=== PATIENT | female | born 1960 | race Caucasian/White ===

== ENCOUNTER → 2017-01-11 | Outpatient (CLI) | payer OTHER ==
--- NOTE | 2017-01-11 14:11 | Diagnostic Imaging Report ---
INDICATION: Right upper quadrant pain. TECHNIQUE: Multiple grayscale sonographic images were obtained of the right upper quadrant of the abdomen. CORRELATION STUDY: None FINDINGS: LIVER: The liver measures 14 cm. There is uniform echotexture. GALLBLADDER: The gallbladder is present and demonstrates no evidence of shadowing gallstones or biliary sludge. No abnormal gallbladder wall thickening or pericholecystic fluid. COMMON BILE DUCT: Obscured and not visualized. PANCREAS: Obscured. RIGHT KIDNEY: Measures 9.6 cm. No hydronephrosis. OTHER: None. IMPRESSION: 1. Limited right upper quadrant ultrasound evaluation. No findings to suggest gallstones. Biliary tree cannot be identified but does not appear to be abnormally dilated. Dictated by: Dictated on workstation # [id number]
== END ==
LOC: RAD 13:34
PROVIDERS: ATTEND Nurse Practitioner Family
DX: R10.11 Right upper quadrant pain (principal)
CPT/HCPCS: 76705

== ENCOUNTER → 2017-01-21 | Outpatient (CLI) | payer OTHER ==
[~2017-01-21] MED LIST: CATHETER FLUSH 10 ML SYR IV PRN
--- NOTE | 2017-01-21 13:18 | Diagnostic Imaging Report ---
INDICATION: Right upper quadrant abdominal pain. After intravenous administration of 4.9 mCi technetium 99m Choletec, scintigraphic images of the upper abdomen are obtained. Initial images reveal normal distribution of activity throughout the liver. There is prompt appearance of activity in the biliary tree and gallbladder. Activity passes freely into the small bowel. Patient subsequently ingested fatty meal with gallbladder ejection fraction calculated to be 20%. IMPRESSION: No evidence of acute cholecystitis or biliary obstruction. Depression of gallbladder ejection may be related to biliary dyskinesia or chronic cholecystitis. Clinical correlation is recommended. Dictated by: Dictated on workstation # [id number]
== END ==
LOC: CARD 09:47
PROVIDERS: ATTEND Nurse Practitioner Family
DX: R10.11 Right upper quadrant pain (principal); K56.0 Paralytic ileus
CPT/HCPCS: 78227

== ENCOUNTER 2017-02-04 13:23 | Outpatient (CLI) | payer OTHER ==
[~2017-02-04] VITALS: Ht 157.5 cm; Wt 57.2 kg
[2017-02-04 13:34] VITALS: BP 139/88
[2017-02-04] MEDS ORDERED: MILK1CAP2 PO (13:40)
[2017-02-04] MEDS ORDERED: COCO1000 PO (13:40)
[2017-02-04] MEDS ORDERED: MULT1CAP27 PO (13:40)
[2017-02-04] MEDS ORDERED: OMG1KC PO (13:40)
[2017-02-04] MEDS ORDERED: GLUC100016 PO (13:40)
[2017-02-04] MEDS ORDERED: UBID100C17 PO (13:40)
[2017-02-04] MEDS ORDERED: GING250C PO (13:40)
== END 2017-02-04 13:45 | disposition home or self-care (01) ==
LOC: PREOP 13:23
PROVIDERS: ATTEND Surgery
DX: Z01.818 Encounter for other preprocedural examination (principal); K82.8 Other specified diseases of gallbladder
CPT/HCPCS: 87081

== ENCOUNTER 2017-02-07 08:27 | Day surgery (SDC) | payer OTHER ==
[~2017-02-07] VITALS: Ht 157.5 cm; Wt 57.2 kg
[~2017-02-07 08:27] MED LIST changes: -CATHETER FLUSH 10 ML SYR IV PRN; +COCO1000 PO; +GING250C PO; +GLUC100016 PO; +MILK1CAP2 PO; +MULT1CAP27 PO; +NS (IVPB) 50 ML ONE; +OMG1KC PO; +UBID100C17 PO; +ceFAZolin 1,000 MG (ANCEF) VIAL ONE
[2017-02-07 08:40] VITALS: BP 141/94
[2017-02-07] MEDS ORDERED: ceFAZolin 1 GM/NS 50 ML IVPB IV ONE ×2 (08:45)
[2017-02-07] MEDS ORDERED: CATHETER FLUSH 10 ML SYR IV PRN (08:45)
[2017-02-07] MEDS ORDERED: GARL1TAB2 PO (08:52)
[2017-02-07] MEDS ORDERED: BUPIVACAINE 0.25% 30 ML (SENSORCAINE) VIAL ONE (09:52)
[2017-02-07] MEDS ORDERED: LIDOCAINE 1% INJ 20 ML (XYLOCAINE) VIAL ONE (09:52)
--- NOTE | 2017-02-07 09:56 | Progress Note-Pre Operative ---
Pre-Operative Progress Note H&P Reviewed The H&P was reviewed, patient examined and no changes noted. Date Seen by Provider: Feb 07, 2017 Time Seen by Provider: 09:56 Date H&P Reviewed: Feb 07, 2017 Time H&P Reviewed: 09:56 Pre-Operative Diagnosis: BILIARY DYSKINESIA CHAGO MENDOSA DO Feb 07, 2017 09:56
[2017-02-07] MEDS ORDERED: fentaNYL INJECTION 100 MCG/2 ML AMP ONE (09:58)
[2017-02-07] MEDS ORDERED: MIDAZOLAM 2 MG/2 ML (VERSED) VIAL ONE (09:58)
[2017-02-07] MEDS ORDERED: LACTATED RINGERS 1,000 ML IV PRN ×2 (09:59→10:09)
[2017-02-07] MEDS ORDERED: FAMOTIDINE 20MG/2ML IV (PEPCID) ONE (10:04)
[2017-02-07] MEDS ORDERED: FAMOTIDINE 20MG/2ML IV (PEPCID) IV ONE (10:15)
[2017-02-07] MEDS ORDERED: ONDANSETRON 4 MG/2 ML (SDV) Z0FRAN ONE ×3 (11:06→12:23)
[2017-02-07] MEDS ORDERED: LACTATED RINGERS 2,000 ML IV ONE (11:06)
[2017-02-07] MEDS ORDERED: DEXAMETHASONE 10 MG/ML (DECADRON) 1 ML VIAL ONE (11:06)
[2017-02-07] MEDS ORDERED: GLYCOPYRROLATE 0.2 MG/ML (ROBINUL) 2 ML VIAL ONE (11:06)
[2017-02-07] MEDS ORDERED: proPOfol 200 MG/20 ML (DIPRIVAN) VIAL IV ONE (11:06)
[2017-02-07] MEDS ORDERED: ROCURONIUM 50 MG/5 ML (ZEMURON) VIAL IV ONE (11:06)
[2017-02-07] MEDS ORDERED: LIDOCAINE PF 2% 5 ML (XYLOCAINE) VIAL ONE (11:06)
[2017-02-07] MEDS ORDERED: NEOSTIGMINE (BLOXIVERZ ) 1 MG/1ML 10 ML VIAL ONE (11:07)
[2017-02-07] MEDS ORDERED: SEVOFLURANE (ULTANE) 15 ML INHAL SOLN ONE ×5 (11:07→11:30)
--- NOTE | 2017-02-07 11:31 | Progress Note-Post Operative ---
Post-Operative Progess Note Surgeon (s)/Transportation Department Head (s) Surgeon CHAGO MENDOSA DO Transportation Department Head: Dr. Valencia Pre-Operative Diagnosis BILIARY DYSKINESIA Post-Operative Diagnosis same Procedure & Operative Findings Date of Procedure 02/07/17 Procedure Performed/Findings lap yari c ioc Anesthesia Type general Estimated Blood Loss Estimated blood loss (mL): minimal Specimens/Packing Specimens Removed gallbladder CHAGO MENDOSA DO Feb 07, 2017 11:31
[2017-02-07] MEDS ORDERED: HYDR-3812 PO (11:33)
[2017-02-07] MEDS ORDERED: DOCU-143 PO (11:33)
--- NOTE | 2017-02-07 11:34 | Discharge Inst-Simple/Standard ---
Discharge Inst-Standard Discharge Medications New, Converted or Re-Newed RX: RX on Chart Patient Instructions/Follow Up Plan of Care/Instructions/FU: 2 weeks Juliet Activity as Tolerated: No Discharge Diet: Regular Diet Other Inst to Patient Follow up Appt: Make appointment for 2 weeks. Instructions: No lifting greater than 10 pounds. No strenuous activity. May shower in 24 hours, no tub bath or soaking. Use incentive spirometer at home as directed. No Smoking Skin/Wound Care: You have special glue over incisions it will fall off on its own. Symptoms to Report: Appetite Changes, Extremity Discoloration, Numbness/Tingling, Swelling Increased , Bleeding Excessive, Eyesight Changes, Pain Increased, Urine Color Change, Constipation(Persistent), Fever over 101 degree F, Pain/Pressure in chest, Urinating Difficulty, Cough Up/Vomit Blood, Heart Beat Irreg/Pounding, Pain/ Pressure in jaw, Vaginal Bleeding Increase, Cramps in feet or legs, Lightheadedness, Pain/Pressure in shoulder, Diarrhea(Persistent), Memory Changes Suddenly, Questions/Concerns, Weight gain consecutive days, Dizziness/ Fainting, Nausea/Vomiting, Shortness of Breath, Weight gain over 2 pounds. If eyes or skin turn yellow notify physician. If questions or concerns contact your physician Or seek help at emergency department. CHAGO MENDOSA DO Feb 07, 2017 11:34
[2017-02-07] MEDS ORDERED: HYDROcodone/APAP 5 MG/325 MG (LORTAB) TAB PO PRN (11:45)
[2017-02-07] MEDS ORDERED: HYDROmorphone (DILAUDID) 2 MG/ML VIAL IVP PRN (11:45)
[2017-02-07] MEDS: morphine INJ 10 MG/ML 1ML (SYR OR VIAL) IVP PRN ×3 (11:50→12:00)
[2017-02-07] MEDS: ONDANSETRON 4 MG/2 ML (SDV) Z0FRAN IVP PRN ×2 (12:31→12:52)
--- NOTE | 2017-02-07 12:32 | OPERATIVE REPORT ---
DATE OF SERVICE: 02/07/2017 PREOPERATIVE DIAGNOSIS: Biliary dyskinesia. POSTOPERATIVE DIAGNOSIS: Biliary dyskinesia. PROCEDURE: Laparoscopic cholecystectomy with intraoperative cholangiogram. SURGEON: Chago Chung DO BUILDING CONSTRUCTION IRONWORKER: Dr. Valencia, who assisted in retraction, dissection and closure. ANESTHESIA: General. ESTIMATED BLOOD LOSS: Minimal. COMPLICATIONS: None. INDICATIONS: The patient is a 56-year-old female who has been having abdominal pain and workup consistent with gallbladder biliary dyskinesia. She understands the risks and benefits of the procedure and wished to proceed with procedure. Consent was signed and in the chart. PROCEDURE: The patient was taken to the operating suite, she was prepped and draped in sterile fashion. A surgical pause was performed. A 12 mm incision was made just above the umbilicus after local anesthetic was infiltrated. Dissection was taken down to the fascia where it was then scored. Kochers were used to grasp and elevate it and the abdomen was then entered. A balloon trocar was then placed into the abdomen, the balloon insufflated and the abdomen was insufflated. Under direct visualization with the laparoscope, a 5 mm trocar was placed in the subxiphoid region and two 5 mm trocars were placed in the right upper quadrant. Gallbladder was then grasped and elevated. The cystic duct and cystic artery were then dissected out. Clips were placed on the proximal and distal portion of the cystic artery and clips were placed on the distal portion of the cystic duct. The cystic duct was then partially transected and an Arrow catheter was inserted and cholangiogram was then performed demonstrating no filling defects and contrast making its way into the duodenum. The catheter was removed and clips were placed on the proximal portion of the cystic duct and this was then completely transected. Hook cautery was used to dissect the gallbladder from the gallbladder fossa achieving hemostasis. Once the gallbladder was removed, it was placed in an Endobag and removed through the 12 mm trocar site. Copious amounts of irrigation were used to irrigate the abdomen since a little bit of bile was spilled. The abdomen was reinspected. Hemostasis had been achieved. The 12 mm trocar was then removed. Prior to insufflating the abdomen an 0 Vicryl suture was placed in a [id number] fashion for the fascial closure at the end, this was then tied. The abdomen was completely desufflated and all the trocars were removed. Skin was then closed using 4-0 Vicryl in a running subcuticular fashion at the umbilicus and a simple interrupted subcuticular fashion at the 5 mm trocar sites. The areas were then washed and dried and Dermabond was placed over the incisions. The patient tolerated the procedure well. She was taken to the recovery room in stable condition. Job ID: [id number] DocumentID: [id number] Dictated Date: 02/07/2017 11:47:25 Fashion Consultant Date: 02/07/2017 12:31:36 Dictated By: CHAGO CHUNG DO
[2017-02-07 12:40] VITALS: BP 129/78
[2017-02-07 13:10] VITALS: BP 128/80
[2017-02-07] MEDS ORDERED: PROMETHAZINE INJ 25 MG/ML (PHENERGAN) AMP ONE (13:25)
[2017-02-07 13:40] VITALS: BP 118/65
[2017-02-07] MEDS ORDERED: PROMETHAZINE INJ 25 MG/ML (PHENERGAN) AMP IVP ONE (13:45)
--- NOTE | 2017-02-07 19:48 | Diagnostic Imaging Report ---
INDICATION: Cholecystectomy Operative cholangiogram performed with injection via the cystic duct stump in surgery. Some of the injected contrast extravasates into the adjacent tissues. Some does fill the biliary tree, however, and there is no overt filling defects in the common duct and contrast passes to the duodenum without obstruction. 9 seconds of fluoroscopy time was used. IMPRESSION: No evidence of common duct stone or biliary obstruction. Some of the injected contrast extravasates from the injection site. Dictated by: Dictated on workstation # [id number]
== END 2017-02-07 14:13 | disposition home or self-care (01) ==
LOC: SDC 08:27
PROVIDERS: ATTEND Surgery
DX: K81.1 Chronic cholecystitis (principal); I10 Essential (primary) hypertension; K21.9 Gastro-esophageal reflux disease without esophagitis; Z79.899 Other long term (current) drug therapy